=== PATIENT | female | born 1970 | race Caucasian/White ===

== ENCOUNTER 2021-01-02 10:36 | Emergency (ER) | payer OTHER ==
[~2021-01-02 10:36] MED LIST: ANTIVERT25 MG PO; ZOFRAN4 MG SL
[2021-01-02 11:36] LABS: ALBUMIN 3.7 g/dL (3.4-5.0); BILIRUBIN - TOTAL 0.9 mg/dL (0.2-1.0); BUN/CREAT RATIO (CALC) 15.6 RATIO; CREATININE 0.9 mg/dL (0.51-0.95); GLOBULIN (CALCULATION) 4.3 g/dL; POTASSIUM 3.9 mmol/L (3.5-5.1)
[2021-01-02 11:43] LABS: BASOPHIL 0.7 % (0-2); HCT 47.7 % (37.0-47.0); HGB 15.6 g/dl (12.5-16.0); LYMPHOCYTE 32.2 % (15-48); MCH 32.5 pg (25.0-31.0); MCHC 32.7 g/dL (32.0-36.0); MCV 99.4 fL (78.0-100.0); MONOCYTE 9.7 % (0-12); MPV 9.2 fL (6.0-9.5); NEUTROPHIL 54.1 % (41-80); NRBC 0; PLT 188 K/uL (150-400); RDW 14.5 % (11.5-14.0); WBC 6.7 K/uL (4.0-10.5)
[2021-01-02] MEDS ORDERED: ZOFRAN4 M1 PO (14:55)
== END 2021-01-02 15:06 | disposition home or self-care (01) ==
LOC: FER 10:36
PROVIDERS: Emergency Medicine Emergency Medical Services
DX: R10.84 Generalized abdominal pain (principal); R94.5 Abnormal results of liver function studies; R11.2 Nausea with vomiting, unspecified; R63.0 Anorexia; I10 Essential (primary) hypertension; E78.5 Hyperlipidemia, unspecified; F17.210 Nicotine dependence, cigarettes, uncomplicated; Z86.19 Personal history of other infectious and parasitic diseases; Z88.0 Allergy status to penicillin; Z88.2 Allergy status to sulfonamides; Z88.8 Allergy status to other drugs, medicaments and biological substances; Z79.899 Other long term (current) drug therapy
CPT/HCPCS: 36415; 80053; 82150; 83690; 85025; G0480; J2405; J7030; Q9967

== ENCOUNTER 2021-03-14 07:26 | Emergency (ER) | payer OTHER ==
[~2021-03-14 07:26] MED LIST changes: +ZOFRAN4 M1 PO
[2021-03-14] MEDS ORDERED: NAPROXEN500 MG PO (08:05)
== END 2021-03-14 08:18 | disposition home or self-care (01) ==
LOC: FER 07:26
DX: G56.01 Carpal tunnel syndrome, right upper limb (principal); F17.200 Nicotine dependence, unspecified, uncomplicated; Z88.0 Allergy status to penicillin; Z88.2 Allergy status to sulfonamides; Z88.1 Allergy status to other antibiotic agents; Z88.5 Allergy status to narcotic agent; Z88.8 Allergy status to other drugs, medicaments and biological substances